=== PATIENT | male | born 1965 | race Caucasian/White ===

== ENCOUNTER 2019-03-23 18:59 | Emergency (ER) | payer OTHER ==
--- NOTE | 2019-03-23 20:26 | EDM.PDOC ---
ED HPI GENERAL MEDICAL PROBLEM - General Chief Complaint: General Stated Complaint: right calf pain Time Seen by Provider: 03/23/19 19:05 Source of Information: Reports: Patient, Family () History Limitations: Reports: No Limitations - History of Present Illness INITIAL COMMENTS - FREE TEXT/NARRATIVE: 53-year-old male presents with right calf swelling, tenderness and bruising. He denies any specific injury. He has pain to palpation and with walking on his right leg. He denies any chest pain shortness of breath. He notices that the swelling and bruising also extends behind the knee. No other complaints are voiced. He denies any significant medical problems. No history of bleeding problems or clotting problems. Onset: Today Onset Date: 03/23/19 Duration: Constant Location: Reports: Lower Extremity, Right Quality: Reports: Ache Severity: Mild Improves with: Reports: Rest Worsens with: Reports: Movement Associated Symptoms: Reports: No Other Symptoms Right Leg Pain Score (Numeric/FACES): 2 - Related Data Allergies Allergy/AdvReac Type Severity Reaction Status Date / Time chlorpheniramine Allergy Hives Verified 03/23/19 19:11 [From [facility] DM] dextromethorphan Allergy Hives Verified 03/23/19 19:11 [From [facility] DM] nitroglycerin Allergy Cardiac Verified 03/23/19 19:11 [facility] Home Meds: Home Meds Multivitamin [Multivitamins] 1 tab PO DAILY 09/08/18 [History] Naproxen Sodium [Aleve] 440 mg PO BID PRN 09/08/18 [History] Acetaminophen [Tylenol Arthritis] 1,300 mg PO Q12HR PRN 03/23/19 [History] Past Medical History HEENT History: Reports: Impaired Vision Respiratory History: Reports: Asthma Gastrointestinal History: Reports: None Musculoskeletal History: Reports: Arthritis - Infectious Disease History Infectious Disease History: Reports: Chicken Pox - Past Surgical History HEENT Surgical History: Reports: Tonsillectomy Respiratory Surgical History: Reports: None GI Surgical History: Reports: EGD, Hernia Repair/Other Musculoskeletal Surgical History: Reports: Arthroscopic Knee Social & Family History - Tobacco Use Smoking Status *Q: Former Smoker Used Tobacco, but Quit: Yes Month/Year Tobacco Last Used: 2003 Second Hand Smoke Exposure: No - Caffeine Use Caffeine Use: Reports: Coffee - Alcohol Use Days Per Week of Alcohol Use: 7 Number of Drinks Per Day: 2 Total Drinks Per Week: 14 Date of Last Drink: 03/23/19 Time of Last Drink: 17:00 - Recreational Drug Use Recreational Drug Use: No ED ROS GENERAL - Review of Systems Review Of Systems: ROS reveals no pertinent complaints other than HPI. ED EXAM, GENERAL - Physical Exam Exam: See Below Exam Limited By: No Limitations General Appearance: Alert, WD/WN, No Apparent Distress Throat/Mouth: Normal Voice, No Airway Compromise Head: Atraumatic Respiratory/Chest: No Respiratory Distress Extremities: Other (Right calf swelling with tenderness to palpation. There is ecchymosis extending posteriorly at the calf muscle belly heading proximally behind the knee. There is no swelling about the knee joint. He has good push off strength. Continuity of the Achilles is intact. Passive stretch is tenderness behind the calf. Tan's test is negative.) Neurological: Alert, Oriented, No Motor/Sensory Deficits Psychiatric: Normal Affect, Normal Mood Skin Exam: Warm, Dry, Intact, Ecchymosis (Right calf) Course - Vital Signs Last Recorded V/S: Last Vital Signs Temp 98.5 F 03/23/19 19:09 Pulse 85 03/23/19 19:09 Resp 16 03/23/19 19:09 BP 150/91 H 03/23/19 19:09 Pulse Ox 93 L 03/23/19 19:09 Departure - Departure Time of Disposition: 19:35 Disposition: DC/Tfer to Other 70 Condition: Good Clinical Impression: Right calf pain, Swelling of right lower extremity - Discharge Information Instructions: Sequential Compression Device, Deep Vein Thrombosis Forms: ED Department Discharge Additional Instructions: 1. Go to [facility] ER side to outpatient registration. You'll be met by radiology to proceed for right lower extremity Doppler ultrasound to rule out DVT. 2. If Doppler ultrasound is negative you'll want some compressive wrap, Wagner bandages. And warm packs. 3. If Doppler ultrasound is positive for DVT you'll need to be on an anticoagulant and have this managed by your primary care. And will need follow- up on Monday. 4. The radiology staff will notify you if you're Doppler ultrasound is positive or negative. - Assessment/Plan Assessment:: Right calf pain/ecchymosis Right lower extremity swelling Plan: 1. Go to [facility] ER side to outpatient registration. You'll be met by radiology to proceed for right lower extremity Doppler ultrasound to rule out DVT. 2. If Doppler ultrasound is negative you'll want some compressive wrap, Wagner bandages. And warm packs. 3. If Doppler ultrasound is positive for DVT you'll need to be on an anticoagulant and have this managed by your primary care. And will need follow- up on Monday. 4. The radiology staff will notify you if you're Doppler ultrasound is positive or negative.
== END 2019-03-23 19:40 | disposition other institution (70) ==
LOC: KA.ED 18:59
DX: M79.89 Other specified soft tissue disorders (principal); M79.662 Pain in left lower leg; R58 Hemorrhage, not elsewhere classified; Z88.8 Allergy status to other drugs, medicaments and biological substances; Z98.890 Other specified postprocedural states; Z87.891 Personal history of nicotine dependence
CPT/HCPCS: 99283

== ENCOUNTER 2025-02-28 01:33 | Observation (INO) | payer BC ==
[2025-02-28] MEDS ORDERED: Sodium Chloride 0.9% 10 ML Syringe FLUSH PRN (01:39)
[2025-02-28 01:52] LABS: BASOPHILS ABSOLUTE AUTO 0.03 10^3/uL (0.00-0.10); BASOPHILS PERCENT AUTO 0.6 % (0.0-1.0); EOSINOPHILS ABSOLUTE AUTO 0.13 10^3/uL (0.10-0.30); EOSINOPHILS PERCENT AUTO 2.6 % (1.0-3.0); HEMATOCRIT 45.4 % (40.0-52.0); HEMOGLOBIN 14.9 g/dL (13.0-17.0); IMMATURE GRAN ABSOLUTE AUTO 0.01 10^3/uL (0.00-0.04); IMMATURE GRAN PERCENT AUTO 0.2 % (0.0-0.4); LYMPHOCYTES ABSOLUTE AUTO 1.23 10^3/uL (1.00-4.00); LYMPHOCYTES PERCENT AUTO 24.8 % (20.0-40.0); MEAN CORPUSCULAR HEMOGLOBIN 30.7 pg (27.0-31.0); MEAN CORPUSCULAR HGB CONC 32.8 g/dL (32.0-36.0); MEAN CORPUSCULAR VOLUME 93.4 fL (82.0-92.0); MEAN PLATELET VOLUME 9.6 fL (7.4-10.4); MONOCYTES ABSOLUTE AUTO 0.42 10^3/uL (0.10-0.80); MONOCYTES PERCENT AUTO 8.5 % (2.0-8.0); NEUTROPHILS ABSOLUTE AUTO 3.13 10^3/uL (2.50-7.00); NEUTROPHILS PERCENT AUTO 63.3 % (50.0-70.0); PLATELET COUNT,PLT 214 10^3/uL (150-400); RED BLOOD CELL COUNT 4.86 10^6/uL (4.50-6.00); RED CELL DISTRIBUTION WIDTH 12.5 % (11.5-14.5); WHITE BLOOD CELL COUNT,WBC 4.95 10^3/uL (5.00-10.00)
[2025-02-28 02:06] LABS: APPEARANCE,URINE CLEAR (CLEAR); BILIRUBIN,URINE NEGATIVE (NEGATIVE); COLOR,URINE YELLOW (YELLOW); GLUCOSE,URINE NEGATIVE (NEGATIVE); KETONES,URINE NEGATIVE (NEGATIVE); LEUKOCYTE ESTERASE,URINE NEGATIVE (NEGATIVE); NITRITE,URINE NEGATIVE (NEGATIVE); OCCULT BLOOD,URINE SMALL (NEGATIVE); PH,URINE 5.5 (5.0-9.0); PROTEIN,URINE NEGATIVE (NEGATIVE); UROBILINOGEN,URINE 0.2 E.U./dL (0.2-1.0)
[2025-02-28] MEDS: Lactated Ringers 1,000 ML IV SCH (02:06)
[2025-02-28 02:13] LABS: BACTERIA,URINE NOT SEEN /HPF (NONE TO FEW); EPITHELIAL CELLS,URINE RARE /LPF; RBC,URINE 0-5 /HPF (0-5); WBC,URINE NOT SEEN /HPF (0-5)
[2025-02-28 02:13] LABS: ALBUMIN 3.46 g/dL (3.40-5.00); ANION GAP 9.9 mmol/L (5-15); BILIRUBIN TOTAL 0.2 mg/dL (0.2-1.0); CARBON DIOXIDE,CO2 28.6 mmol/L (21.0-32.0); CREATININE 0.74 mg/dL (0.51-1.17); EST CRCL DRUG DOSING (CG) 103.5 mL/min; POTASSIUM,K 3.5 mmol/L (3.5-5.1); PROTEIN TOTAL,TP 6.7 g/dL (6.4-8.2)
[2025-02-28 02:14] LABS: AMPHETAMINES SCREEN, URINE NEGATIVE (NEGATIVE); BARBITURATE SCREEN,URINE NEGATIVE (NEGATIVE); BENZODIAZEPINES SCREEN,URINE NEGATIVE (NEGATIVE); COCAINE METABOLITES,URINE NEGATIVE (NEGATIVE); METHADONE SCREEN, URINE NEGATIVE (NEGATIVE); METHAMPHETAMINES SCREEN, URINE NEGATIVE (NEGATIVE); OXYCODONE SCREEN,URINE NEGATIVE (NEGATIVE); PCP SCREEN,URINE NEGATIVE (NEGATIVE); TCA SCREEN,URINE NEGATIVE (NEGATIVE); THC SCREEN,URINE 50 NG/ML NEGATIVE (NEGATIVE)
[2025-02-28 02:18] LABS: INR 1.1 (0.9-1.1); PROTHROMBIN TIME 11.6 SEC (9.1-12.0); PTT,PARTIAL THROMBOPLSTIN TIME 24.9 SEC (21.6-32.4)
[2025-02-28] MEDS: Diphtheria,Pertussis(Acell),Tetanus Vaccine 0.5 ML Syringe IM ONE (03:41)
[2025-02-28] MEDS ORDERED: Acetaminophen 325 MG Tab PO PRN (06:36)
== END 2025-02-28 10:40 | disposition home or self-care (01) ==
LOC: KA.ED 01:33 → KA.MS 04:00
PROVIDERS: ADMIT Internal Medicine; ATTEND Internal Medicine
DX: F10.129 Alcohol abuse with intoxication, unspecified (principal); S01.81XA Laceration without foreign body of other part of head, initial encounter; Z88.8 Allergy status to other drugs, medicaments and biological substances; Z79.899 Other long term (current) drug therapy; V86.59XA Driver of other special all-terrain or other off-road motor vehicle injured in nontraffic accident, initial encounter; Y90.8 Blood alcohol level of 240 mg/100 ml or more
CPT/HCPCS: 70450; 71045; 72125; 72170; 80053; 80305-QW; 80307; 81001; 85025; 85610; 85730; 90715; G0378; J7120; Q3014